=== PATIENT | female | born 1990 | race Caucasian/White ===

== ENCOUNTER 2019-07-28 09:37 | Emergency (ER) | payer OTHER ==
[2019-07-28] MEDS ORDERED: SODIUM CHLORIDE 0.9% 500 ML 500 ML IV ONE (10:18)
[2019-07-28] MEDS ORDERED: ACETAMINOPHEN TAB 325 MG TAB PO STA (10:18)
[2019-07-28] MEDS ORDERED: METOCLOPRAMIDE 5 MG/ML 2 ML VIAL IVP STA (10:19)
[2019-07-28] MEDS ORDERED: diphenhydrAMINE 50 MG/ML 1 ML VIAL IVP STA (10:19)
[2019-07-28 10:40] LABS: Basophils # (A) 0.1 k/uL (0-0.2); Basophils % (A) 1 %; Eosinophils # (A) 0.2 k/uL (0-0.7); Eosinophils % (A) 2 %; HCT 38.7 % (34.0-46.0); HGB 12.7 gm/dL (11.4-16.0); Lymphocytes # (A) 1.5 k/uL (1.0-4.8); Lymphocytes % (A) 13 %; MCH 31.4 pg (25.0-35.0); MCHC 32.7 g/dL (31.0-37.0); Mean Platelet Volume 7.6; Monocytes # (A) 0.5 k/uL (0-1.0); Monocytes % (A) 4 %; Neutrophils # (A) 9.1 k/uL (1.3-7.7); Neutrophils % (A) 79 %; Platelet Count 196 k/uL (150-450); RBC 4.04 m/uL (3.80-5.40); RDW 12.6 % (11.5-15.5); WBC 11.4 k/uL (3.8-10.6)
--- NOTE | 2019-07-28 10:43 | ED ---
Chest Pain HPI - General Chief Complaint: Chest Pain Stated Complaint: CHEST PAIN, SOB Time Seen by Provider: 07/28/19 09:40 Source: patient Mode of arrival: ambulatory - History of Present Illness Initial Comments: The patient is a 29-year-old female who presents to the emergency room with reported chest pain. She states that it woke her up from sleep around 8 AM this morning. Is located over the left side of her chest without radiation. States that it hurts when she takes a deep breath. Is not reproducible upon palpation. No history of cardiac disease. Denies a history of DVT or PE. No family history of blood clotting disorder. The patient is not on any exogenous hormone. No recent surgeries or prolonged immobility. The patient is currently . States that her last menses cycle was June 19. She has yet to establish care. She is . Denies any issues with this . Denies any abnormal vaginal bleeding or discharge. No abdominal cramping. No issues with her previous pregnancies. Denies any calf pain or swelling. Denies any changes in her urination to include dysuria, hematuria or difficulty voiding. Denies any changes in her bowel movement since diarrhea, constipation, melanotic stools or hematochezia. No fevers or chills. Denies a cough or hemoptysis. There are no other alleviating, precipitating or modifying factors - Related Data Home Medications Medication Instructions Recorded Confirmed Aspirin EC [Ecotrin Low Dose] 81 mg PO DAILY PRN 07/28/19 07/28/19 Allergies Allergy/AdvReac Type Severity Reaction Status Date / Time No Known Allergies Allergy Verified 07/28/19 11:53 Review of Systems ROS Statement: Those systems with pertinent positive or pertinent negative responses have been documented in the HPI. ROS Other: All systems not noted in ROS Statement are negative. EKG Findings - EKG Comments: EKG Findings:: EKG demonstrates a normal sinus rhythm with a ventricular rate of 81. AR interval 170. QRS 102. QTC 441. There is a right bundle branch block. No acute ST segment elevations or depressions concerning for ischemic changes Past Medical History Past Medical History: No Reported History History of Any Multi-Drug Resistant Organisms: None Reported Past Surgical History: Adenoidectomy, Ear Surgery Past Psychological History: No Psychological Hx Reported Smoking Status: Current some day smoker Past Alcohol Use History: Occasional Past Drug Use History: None Reported Course Vital Signs 07/28/19 07/28/19 07/28/19 09:39 11:42 12:00 Temperature 97.8 F 98.5 F 98.9 F Pulse Rate 109 H 77 74 Respiratory 18 20 18 Rate Blood Pressure 108/59 107/65 99/57 O2 Sat by Pulse 100 97 96 Oximetry 07/28/19 13:59 Temperature 98.5 F Pulse Rate 70 Respiratory 18 Rate Blood Pressure 104/62 O2 Sat by Pulse 98 Oximetry Chest Pain MDM - MDM Upon arrival the patient was placed into room 6. A thorough history and physical exam is performed. EKG was performed on the patient which demonstrates a right bundle branch block. Laboratory studies were conducted. White blood cell count 11.4. D-dimer is negative at 0.31. Lipase is 301. Beta Quant 8311. Urinalysis is negative chest x-ray of uncertain acute cardiac process. Ultrasound demonstrates intrauterine gestational sac and yolk sac however no pole. I discussed these results with the patient. She was given Tylenol for pain control. Does report that she had improvement in her symptoms. I dis cussed diagnosis, differential and treatment options. At this time the patient will follow up with her MUSHROOM CULTIVATOR have a repeat ultrasound done in 5-7 days. She should also follow-up and had a full cardiac workup to include Holter monitoring and echo. The patient understood this. If she has any new or worsening symptoms she should return to the emergency room. The patient was discharged home in stable condition Disposition Clinical Impression: Chest pain, First trimester Disposition: HOME SELF-CARE Condition: Stable Instructions (If sedation given, give patient instructions): Chest Pain (ED) Additional Instructions: You must follow-up with your MUSHROOM CULTIVATOR within 5-7 days to have a repeat ultrasound performed. You should also have an echo of your heart. If you have any new or worsening symptoms, you should return to the emergency department Is patient prescribed a controlled substance at d/c from ED?: No Referrals: Gerardo Moreno MD [STAFF PHYSICIAN] - 1-2 days [facility] [Provider Group] - 1-2 days Time of Disposition: 13:35
[2019-07-28 10:49] LABS: ALT 22 U/L (9-52); AST 21 U/L (14-36); African American GFR (CKD) >90 (>60 ml/min/1.73 sqM); Albumin 3.9 g/dL (3.5-5.0); Alkaline Phosphatase 38 U/L (38-126); Anion Gap 7 mmol/L; Blood Urea Nitrogen 12 mg/dL (7-17); Calcium 9.2 mg/dL (8.4-10.2); Carbon Dioxide 23 mmol/L (22-30); Chloride 109 mmol/L (98-107); Glucose 92 mg/dL (74-99); Magnesium 1.6 mg/dL (1.6-2.3); Potassium 3.8 mmol/L (3.5-5.1); Sodium 139 mmol/L (137-145); Total Bilirubin 0.7 mg/dL (0.2-1.3); Total Protein 6.5 g/dL (6.3-8.2)
[2019-07-28 10:52] LABS: D-Dimer 0.31 mg/L FEU (<0.60); INR 1.1 (<1.2); Partial Thromboplastin Time 24.1 sec (22.0-30.0); Prothrombin Time 11.4 sec (9.0-12.0)
--- NOTE | 2019-07-28 11:35 | US ---
EXAMINATION TYPE: Transabdominal DATE OF EXAM: 07/28/2019 11:26 AM COMPARISON: NONE CLINICAL HISTORY: pain. Chest pain, SOB, patient states no pelvic pain or bleeding, 4, para 3 EXAM PERFORMED: Transabdominal (TA) EXAM MEASUREMENTS: GESTATIONAL AGE / DATING Physician Established: Not established yet Dates by LMP: (5 weeks/4 days) EDC: 03/25/2020 Dates by First Scan: This is 1st scan Dates by Current Scan for: Gestational sac and yolk sac seen, measures out of range, too early MATERNAL ANATOMY Uterus: 10.4 x 6.0 x 7.2cm, anteverted Right Ovary: 2.6 x 1.6 x 1.3cm Left Ovary: 4.6 x 3.1 x 3.4cm Post CDS / Adnexa: wnl Presence of free fluid: no Presence of corpus luteal cyst: left ovary cystic area: 2.8 x 2.7 x 2.9cm, possible corpus luteum the re is an intrauterine gestational sac and yolk sac seen however no pole is identified at this t tristin. Findings Presence of subchorionic bleed: no GESTATION / SURVEY No pole seen at this time MSD: 0.9cm measures out of range, too early Yolk Sac (normal less than 6mm): 2.8mm Date of LMP: 06/19/2019 Beta HcG (if available): Not available before exam. IMPRESSION: Intrauterine gestational sac and yolk sac are seen however no pole is yet identifie d. Therefore, differential remains for anembryonic , normal intrauterine with kaelyn y dates, or evolving spontaneous . Short-term follow-up ultrasound is recommended in 5-7 days to ensure pole and cardiac activity. Serial serum beta hCGs are also recommended.
--- NOTE | 2019-07-28 11:55 | XR ---
EXAMINATION TYPE: XR chest 2V DATE OF EXAM: 07/28/2019 COMPARISON: NONE HISTORY: Chest pain TECHNIQUE: Frontal and lateral views of the chest are obtained. FINDINGS: There is no focal air space opacity, pleural effusion, or pneumothorax seen. Slight hazine ss in the right middle lobe is attributable to a pectus excavatum deformity on the lateral view. The cardiac silhouette size is within normal limits. The osseous structures are intact. IMPRESSION: No acute cardiopulmonary process.
[2019-07-28 12:35] LABS: Appearance,Urine Clear (Clear); Bilirubin,Urine Negative (Negative); Blood,Urine Negative (Negative); Color,Urine Yellow; Glucose,Urine (UA) Negative (Negative); Ketones,Urine Negative (Negative); Leukocyte Esterase,Urine Negative (Negative); Nitrite,Urine Negative (Negative); PH, Urine 5.5 (5.0-8.0); Protein,Urine Trace (Negative); Specific Gravity,Urine 1.031 (1.001-1.035)
[2019-07-28 12:59] VITALS: RESP 18
[2019-07-28 14:00] VITALS: BP 104/62; PULSE 70; TEMP 98.5
== END 2019-07-28 14:02 | disposition home or self-care (01) ==
LOC: EC 09:37
DX: O99.89 Other specified diseases and conditions complicating pregnancy, childbirth and the puerperium (principal); R07.9 Chest pain, unspecified; O99.411 Diseases of the circulatory system complicating pregnancy, first trimester; I45.10 Unspecified right bundle-branch block; F17.200 Nicotine dependence, unspecified, uncomplicated
CPT/HCPCS: 36415; 93005; 85379; 80053; 83690; 83735; 84484; 85025; 85610; 85730; 81003; 84702; 71046; 76801; 99285; 96374; 96375; J1200; J2765

== ENCOUNTER 2023-09-18 16:10 | Inpatient (IN) | payer OTHER ==
[2023-09-18] MEDS ORDERED: SODIUM CHLORIDE 0.9% 1,000 ML IV STA ×2 (16:30→18:35)
[2023-09-18] MEDS ORDERED: ONDANSETRON 4 MG/2 ML VIAL IVP STA (16:30)
[2023-09-18] MEDS ORDERED: MORPHINE SULFATE 4 MG/ML SYRINGE IV STA (16:31)
[2023-09-18] MEDS ORDERED: KETOROLAC 15 MG/ML 1 ML VIAL IVP STA (16:31)
[2023-09-18 17:00] LABS: Basophils % (A) 0 %; Eosinophils # (A) 0.1 k/uL (0-0.7); Eosinophils % (A) 1 %; HCT 34.6 % (34.0-46.0); HGB 11.7 gm/dL (11.4-16.0); Lymphocytes # (A) 0.9 k/uL (1.0-4.8); Lymphocytes % (A) 5 %; MCH 32.8 pg (25.0-35.0); MCV 96.6 fL (80.0-100.0); Mean Platelet Volume 8.4; Monocytes # (A) 0.6 k/uL (0-1.0); Monocytes % (A) 4 %; Neutrophils # (A) 14.5 k/uL (1.3-7.7); Neutrophils % (A) 90 %; Platelet Count 270 k/uL (150-450); RBC 3.58 m/uL (3.80-5.40); RDW 11.8 % (11.5-15.5); WBC 16.1 k/uL (3.8-10.6)
[2023-09-18 17:07] LABS: ALT 16 U/L (4-34); AST 19 U/L (14-36); African American GFR (CKD) >90 (>60 ml/min/1.73 sqM); Albumin 4.4 g/dL (3.5-5.0); Alkaline Phosphatase 60 U/L (38-126); Anion Gap 12 mmol/L; Blood Urea Nitrogen 15 mg/dL (7-17); Calcium 9.3 mg/dL (8.4-10.2); Carbon Dioxide 21 mmol/L (22-30); Chloride 102 mmol/L (98-107); Glucose 90 mg/dL (74-99); Lipase 53 U/L (23-300); Non-African American GFR(CKD) >90 (>60 ml/min/1.73 sqM); Potassium 4.2 mmol/L (3.5-5.1); Sodium 135 mmol/L (137-145); Total Bilirubin 0.9 mg/dL (0.2-1.3)
--- NOTE | 2023-09-18 17:11 | ED ---
Abdominal Pain HPI - General Chief Complaint: Abdominal Pain Stated Complaint: abd pain vaginal bleeding Time Seen by Provider: 09/18/23 16:23 Source: patient, RN notes reviewed Mode of arrival: ambulatory Limitations: no limitations - History of Present Illness Initial Comments: A pleasant 33-year-old female presents to emergency department complaining of pelvic pain. She states it is a constant cramping that does not let up. This may going on since Sunday. Patient states she had vaginal bleeding which is actually slowing down a bit now. Less than normal menses. Had a elective in [place] on September 01. Patient states that she took medication. Patient is A2. Had a spontaneous miscarriage as well as this elective . Patient states she had pain and some bleeding for about 2 days after the procedure which resolved until it started again on Sunday. Denying any nausea or vomiting. Pain is in the lower pelvic region, some pain in the back and right hip area as well. With urination or bowel movements. Does not recall passing any tissue but did pass a large clot yesterday. The health issues. One [place] at home. Since POUNCING LATHE OPERATOR [facility] No headache, no fever or chills, no changes in vision or hearing, no sore throat or difficulty with speech, no neck pain, no chest pain or shortness of breath, no nausea or vomiting, no changes in urination or bowel movements, no numbness or tingling, no extremity pain, no skin rashes or lesions. Doesn't or vaginal bleeding That the patient had a bilateral salpingectomy in July Past medical, surgical, social, and family history reviewed. - Related Data Home Medications Medication Instructions Recorded Confirmed Ibuprofen [Motrin] 600 mg PO Q6HR PRN 09/18/23 09/18/23 Allergies Allergy/AdvReac Type Severity Reaction Status Date / Time No Known Allergies Allergy Verified 09/18/23 17:55 Review of Systems ROS Statement: Those systems with pertinent positive or pertinent negative responses have been documented in the HPI. ROS Other: All systems not noted in ROS Statement are negative. Past Medical History Past Medical History: No Reported History History of Any Multi-Drug Resistant Organisms: None Reported Past Surgical History: Adenoidectomy, Ear Surgery Past Psychological History: No Psychological Hx Reported Past Alcohol Use History: Occasional Past Drug Use History: None Reported General Exam - General Exam Comments Initial Comments: Patient does not appear to be ill or toxic. Vital signs stable, patient afebrile. Refill less than 2 seconds. Alert and oriented 4. Cranial nerves II through XII grossly intact Limitations: no limitations General appearance: alert, in distress Head exam: Present: atraumatic, normocephalic, normal inspection Eye exam: Present: normal appearance, PERRL, EOMI. Absent: scleral icterus, conjunctival injection, periorbital swelling ENT exam: Present: normal exam, mucous membranes moist Neck exam: Present: normal inspection. Absent: tenderness, meningismus, lymphadenopathy Respiratory exam: Present: normal lung sounds bilaterally. Absent: respiratory distress, wheezes, rales, rhonchi, stridor Cardiovascular Exam: Present: regular rate, normal rhythm, normal heart sounds. Absent: systolic murmur, diastolic murmur, rubs, gallop, clicks GI/Abdominal exam: Present: soft, normal bowel sounds. Absent: distended, tenderness, guarding, rebound, rigid Extremities exam: Present: normal inspection, full ROM, normal capillary refill. Absent: tenderness, pedal edema, joint swelling, calf tenderness Back exam: Present: normal inspection Neurological exam: Present: alert, oriented X3, CN II-XII intact Psychiatric exam: Present: normal affect, normal mood Skin exam: Present: warm, dry, intact, normal color. Absent: rash Course Vital Signs 09/18/23 09/18/23 09/18/23 16:11 17:45 19:40 Temperature 99.1 F 103.1 F H 101.3 F H Pulse Rate 108 H 101 H Respiratory 18 18 Rate Blood Pressure 104/71 98/66 O2 Sat by Pulse 98 99 Oximetry 09/18/23 09/18/23 20:45 23:16 Temperature 100.3 F H 98.8 F Pulse Rate 98 73 Respiratory 16 16 Rate Blood Pressure 98/56 93/60 O2 Sat by Pulse 97 100 Oximetry - Reevaluation(s) Reevaluation #1: 09/18/23 18:42 Patient reevaluated, patient starting to look a bit ill. Spiked a fever of 103. Sepsis panel added on. Normal saline at 130 mL per hour. Patient is maintaining her pressure. Anastasiia tazobactam added on. Note that the patient is refusing pelvic examination. We'll have the patient self swab for gonorrhea, chlamydia, genital culture. I discussed this case with the on-call teacher private. Reevaluation #2: 09/18/23 18:43 Patient meeting the sepsis protocol, tachycardic, normal heart sounds otherwise. Normal S1 and S2, capillary refill less than 2 seconds. Normal peripheral pulses. Normal blood pressure. No adventitious lung sounds. Reevaluation #3: 09/18/23 20:58 - Consultations Consultation #1: Was discussed in detail with both the hospitalist physician as well as the POUNCING LATHE OPERATOR on-call, Dr. Gonzalez since admission to the patient. Medical Decision Making - Medical Decision Making Was pt. sent in by a medical professional or institution? @ -no Did you speak to anyone other than the patient for history? @ -Patient's friend/aunt is in the room with her Did you review nursing and triage notes? @ -agree Were old charts reviewed? @ -no Differential Diagnosis? @ -Differential diagnosis includes but is not limited to: Came products of conception, ovarian cyst, ovarian torsion, endometritis, less likely appendicitis or diverticulitis or other intra-abdominal pathology. Does not appear to be consistent with PID. Patient has bleeding with no vaginal discharge. Systemic infectious process. No consistent of cardiopulmonary disease. EKG interpreted by me (3pts min.)? @ -[none] X-rays interpreted by me (1pt min.)? @ -[none] CT interpreted by me (1pt min.)? @ -[none] U/S interpreted by me (1pt. min.)? @ -[none] What testing was considered but not performed? (CT, X-rays, U/S, labs)? Why? @ [CT, X-rays, U/S, labs? Why?] What meds were considered but not given? Why? @ -[none] Did you discuss the management of the patient with other professionals? @ -[professionals i.e. Dr, PA, BLACK LEATHER TRIMMER, Lab, RT, Psych Nurse, Clinical Data Abstractor, Assistant Director Of Residence Life, Teacher, Incident Response Coordinator, case hardener? Give summary] Did you reconcile home meds? @ -[none] Was smoking cessation discussed for >3mins.? @ -[none] Was critical care preformed (if so, how long)? @ -[none] Were there social determinants of health that impacted care today? How? (Homelessness, low income, unemployed, alcoholism, drug addiction, transportati on, low edu. Level, literacy, decrease access to med. care, correction, rehab)? @ -[Homelessness, low income, unemployed, alcoholism, drug addiction, transportation, low edu. Level, literacy, decrease access to med. care, correction, rehab?] Was there de-escalation of care discussed even if they declined? (Discuss DNR or withdrawal of care, Hospice)? @ -[Discuss DNR or withdrawal of care, Hospice?] What co-morbidities impacted this encounter? (DM, HTN, Smoking, COPD, CAD, Cancer, CVA, Hep., AIDS, mental health diagnosis, sleep apnea, morbid obesity)? @ -[DM, HTN, Smoking, COPD, CAD, Cancer, CVA, Hep., AIDS, mental health diagnosis, sleep apnea, morbid obesity?] Was patient admitted / discharged? @ -[hospital course] Undiagnosed new problem with uncertain prognosis? @ -[none] Drug Therapy requiring intensive monitoring for toxicity (Heparin, Nitro, Insulin, Cardizem)? @ -[none] Were any procedures done? @ -[none] Diagnosis/symptom? @ -[default] Acute, or Chronic, or Acute on Chronic? @ -[default] Uncomplicated (without systemic symptoms) or Complicated (systemic symptoms)? @ -[default] Side effects of treatment? @ -[none] Exacerbation, Progression, or Severe Exacerbation] @ -[no] Poses a threat to life or bodily function? @ -[no] - Lab Data Result diagrams: 09/18/23 16:40 09/18/23 16:40 Lab Results 09/18/23 09/18/23 09/18/23 Range/Units 16:40 16:40 16:40 WBC 16.1 H (3.8-10.6) k/uL RBC 3.58 L (3.80-5.40) m/uL Hgb 11.7 (11.4-16.0) gm/dL Hct 34.6 (34.0-46.0) % MCV 96.6 (80.0-100.0) fL MCH 32.8 (25.0-35.0) pg MCHC 34.0 (31.0-37.0) g/dL RDW 11.8 (11.5-15.5) % Plt Count 270 (150-450) k/uL MPV 8.4 Neutrophils % 90 % Lymphocytes % 5 % Monocytes % 4 % Eosinophils % 1 % Basophils % 0 % Neutrophils # 14.5 H (1.3-7.7) k/uL Lymphocytes # 0.9 L (1.0-4.8) k/uL Monocytes # 0.6 (0-1.0) k/uL Eosinophils # 0.1 (0-0.7) k/uL Basophils # 0.0 (0-0.2) k/uL Sodium 135 L (137-145) mmol/L Potassium 4.2 (3.5-5.1) mmol/L Chloride 102 (98-107) mmol/L Carbon Dioxide 21 L (22-30) mmol/L Anion Gap 12 mmol/L BUN 15 (7-17) mg/dL Creatinine 0.76 (0.52-1.04) mg/dL Est GFR (CKD-EPI)AfAm >90 (>60 ml/min/1.73 sqM) Est GFR (CKD-EPI)NonAf >90 (>60 ml/min/1.73 sqM) Glucose 90 (74-99) mg/dL Plasma Lactic Acid Efraín (0.7-2.0) mmol/L Calcium 9.3 (8.4-10.2) mg/dL Total Bilirubin 0.9 (0.2-1.3) mg/dL AST 19 (14-36) U/L ALT 16 (4-34) U/L Alkaline Phosphatase 60 (38-126) U/L C-Reactive Protein (<1.0) mg/dL Total Protein 7.0 (6.3-8.2) g/dL Albumin 4.4 (3.5-5.0) g/dL Lipase 53 (23-300) U/L Urine Color Yellow Urine Appearance Cloudy H (Clear) Urine pH 5.5 (5.0-8.0) Ur Specific [place] 1.021 (1.001-1.035) Urine Protein Trace H (Negative) Urine Glucose (UA) Negative (Negative) Urine Ketones 2+ (Negative) Urine Blood Large (Negative) Urine Nitrite Negative (Negative) Urine Bilirubin Negative (Negative) Urine Urobilinogen <2.0 (<2.0) mg/dL Ur Leukocyte Esterase Moderate (Negative) Urine RBC 13 H (0-5) /hpf Urine WBC 30 H (0-5) /hpf Ur Squamous Epith Cells 3 (0-4) /hpf Urine Bacteria Rare H (None) /hpf Urine Mucus Many H (None) /hpf Blood Type Blood Type Recheck Bld Type Recheck Status Antibody Screen Spec Expiration Date 09/18/23 09/18/23 09/18/23 Range/Units 17:04 18:35 18:35 WBC (3.8-10.6) k/uL RBC (3.80-5.40) m/uL Hgb (11.4-16.0) gm/dL Hct (34.0-46.0) % MCV (80.0-100.0) fL MCH (25.0-35.0) pg MCHC (31.0-37.0) g/dL RDW (11.5-15.5) % Plt Count (150-450) k/uL MPV Neutrophils % % Lymphocytes % % Monocytes % % Eosinophils % % Basophils % % Neutrophils # (1.3-7.7) k/uL Lymphocytes # (1.0-4.8) k/uL Monocytes # (0-1.0) k/uL Eosinophils # (0-0.7) k/uL Basophils # (0-0.2) k/uL Sodium (137-145) mmol/L Potassium (3.5-5.1) mmol/L Chloride (98-107) mmol/L Carbon Dioxide (22-30) mmol/L Anion Gap mmol/L BUN (7-17) mg/dL Creatinine (0.52-1.04) mg/dL Est GFR (CKD-EPI)AfAm (>60 ml/min/1.73 sqM) Est GFR (CKD-EPI)NonAf (>60 ml/min/1.73 sqM) Glucose (74-99) mg/dL Plasma Lactic Acid Efraín 0.7 (0.7-2.0) mmol/L Calcium (8.4-10.2) mg/dL Total Bilirubin (0.2-1.3) mg/dL AST (14-36) U/L ALT (4-34) U/L Alkaline Phosphatase (38-126) U/L C-Reactive Protein 5.9 H (<1.0) mg/dL Total Protein (6.3-8.2) g/dL Albumin (3.5-5.0) g/dL Lipase (23-300) U/L Urine Color Urine Appearance (Clear) Urine pH (5.0-8.0) Ur Specific [place] (1.001-1.035) Urine Protein (Negative) Urine Glucose (UA) (Negative) Urine Ketones (Negative) Urine Blood (Negative) Urine Nitrite (Negative) Urine Bilirubin (Negative) Urine Urobilinogen (<2.0) mg/dL Ur Leukocyte Esterase (Negative) Urine RBC (0-5) /hpf Urine WBC (0-5) /hpf Ur Squamous Epith Cells (0-4) /hpf Urine Bacteria (None) /hpf Urine Mucus (None) /hpf Blood Type A Positive Blood Type Recheck A Pos Bld Type Recheck Status No Antibody Screen NEGATIVE Spec Expiration Date 09/21/20232303 Critical Care Time Critical Care Time: Yes (Sepsis, multiple rechecks, interventions) Total Critical Care Time: 35 Disposition Clinical Impression: Sepsis, Endometritis, Products of conception, retention Disposition[facility] Condition: Fair Is patient prescribed a controlled substance at d/c from ED?: Yes Time of Disposition: 21:00 Decision to Admit Reason: Admit from EC Decision Time: 21:00
[2023-09-18 17:27] LABS: Bacteria,Urine Rare /hpf; Mucus,Urine Many /hpf; RBC,Urine 13 /hpf (0-5); Squamous Epithelial Cell,Urine 3 /hpf (0-4); WBC,Urine 30 /hpf (0-5)
[2023-09-18 18:03] LABS: Appearance,Urine Cloudy (Clear); Bilirubin,Urine Negative (Negative); Blood,Urine Large (Negative); Color,Urine Yellow; Glucose,Urine (UA) Negative (Negative); Ketones,Urine 2+ (Negative); Leukocyte Esterase,Urine Moderate (Negative); Nitrite,Urine Negative (Negative); PH, Urine 5.5 (5.0-8.0); Protein,Urine Trace (Negative); Specific Gravity,Urine 1.021 (1.001-1.035); Urobilinogen,Urine <2.0 mg/dL (<2.0)
--- NOTE | 2023-09-18 18:08 | US ---
EXAMINATION TYPE: US pelvic complete DATE OF EXAM: 09/18/2023 COMPARISON: 07/28/2019. CLINICAL INDICATION: Female, 33 years old with history of Pelvic pain?assessed for products of concep tion, a; generalized pelvic pain and bleeding. Pt had medical on 09/01/23. Pt states bilater al tubalectomy 07/31/23. . Pt states she had an US 09/01/23 and she was 8 weeks pg. Checking for RPOC TECHNIQUE: . Transabdominal sonographic images of the pelvis were acquired. Date of LMP: 07/08/23 EXAM MEASUREMENTS: Uterus: 9.5 x 6.1 x 5.4cm cm Endometrial Stripe: 1.6 cm Right Ovary: 2.4 x 1.3 x 1.5 cm Left Ovary: 2.7 x 2.1 x 2.4 cm 1. Uterus: Anteverted wnl 2. Endometrium: Thickened and heterogeneous. There does appear to be some hypervascularity 3. Right Ovary: Anechoic area with thick hyperechoic ring measuring 1.3 x 1.3 x 1.2cm felt to repres ent a follicle within the ovary. Hyperechoic area seen measuring 1.2 x 1.1 x 0.8cm 4. Left Ovary: Cystic area seen measuring 1.4 x 1.4 x 1.1cm Spectral, color and waveform doppler imaging shows good arterial and venous flow within the ovaries ; there is no evidence for ovarian torsion. 5. Bilateral Adnexa: Free fluid seen in right adnexa 6. Posterior cul-de-sac: wnl IMPRESSION: There is thickened endometrium with color Doppler flow. Findings could represent retained products of conception. No gestational sac visualized. Correlate with serum beta hCG.
[2023-09-18] MEDS ORDERED: PIPERACILLIN-TAZOBACTAM 3.375 GM in SODIUM CHLORIDE 0.9% 100 ML IVPB STA (18:35)
[2023-09-18] MEDS ORDERED: ACETAMINOPHEN TAB 500 MG TAB PO STA (18:37)
--- NOTE | 2023-09-18 20:34 | CT ---
EXAMINATION TYPE: CT abdomen pelvis w con CT DLP: 473.7 mGycm, Automated exposure control for dose reduction was used. DATE OF EXAM: 09/18/2023 8:01 PM COMPARISON: Ultrasound same day. CLINICAL INDICATION:Female, 33 years old with history of Lower abdominal/pelvic pain; Lower pelvic pa in x 4 days TECHNIQUE: Axial CT of the ;CT abdomen pelvis w con;Sagittal and coronal reformats were created on a separate workstation. Contrast used:100 cc mL of Isovue 300 with IV Contrast, (none if empty) Oral contrast used: without Oral Contrast (none if empty) FINDINGS: LOWER CHEST: Unremarkable ABDOMEN LIVER: Mild periportal edema likely secondary to hydration/volume status. GALLBLADDER AND BILE DUCTS: Unremarkable. PANCREAS: Unremarkable. SPLEEN: Unremarkable. ADRENAL GLANDS: Unremarkable. KIDNEYS AND URETERS: No evidence of hydronephrosis or renal calculus. The ureters are unremarkable. PELVIS BLADDER: Unremarkable REPRODUCTIVE: Thickened endometrium with fluid with focal area of hyperemic endometrium/retained prox imal subclavian exception in the fundus posteriorly measuring 25 x 9 x 34 mm. Multiple dilated vessel s are seen in the pelvis. ABDOMEN & PELVIS STOMACH AND BOWEL: No evidence of bowel obstruction. PERITONEUM/RETROPERITONEUM: No evidence of pneumoperitoneum or free fluid. VASCULATURE: No evidence of aortic aneurysm. MUSCULOSKELETAL: No acute osseous abnormalities LYMPH NODES: No gross evidence for lymphadenopathy. SOFT TISSUE/ABDOMINAL WALL: Unremarkable IMPRESSION: Thickened endometrium with hyperemic area posteriorly in the fundus suggestive of retained products o f conception. These findings correlate with ultrasound same day. ELECTRONIC GAMING DEVICE SUPERVISOR consultation recommended.
[2023-09-18] MEDS ORDERED: MORPHINE SULFATE 4 MG/ML SYRINGE IV PRN (21:23)
[2023-09-18] MEDS ORDERED: NALOXONE 0.4 MG/ML 1 ML VIAL IV PRN (21:23)
[2023-09-18] MEDS ORDERED: ONDANSETRON 4 MG/2 ML VIAL IVP PRN (21:23)
[2023-09-18] MEDS: PIPERACILLIN-TAZOBACTAM 3.375 GM in SODIUM CHLORIDE 0.9% 100 ML IVPB SCH (22:44)
[2023-09-18] MEDS: SODIUM CHLORIDE 0.9% 1,000 ML IV SCH (22:45)
[2023-09-19] MEDS ORDERED: ACETAMINOPHEN TAB 500 MG TAB PO PRN (00:11)
[2023-09-19] MEDS ORDERED: IBUPROFEN IV 800 MG in SODIUM CHLORIDE 0.9% 250 ML IV ONE (02:30)
[2023-09-19] MEDS: PIPERACILLIN-TAZOBACTAM 3.375 GM in SODIUM CHLORIDE 0.9% 100 ML IVPB SCH ×4 (05:47→22:04)
[2023-09-19] MEDS: SODIUM CHLORIDE 0.9% 1,000 ML IV SCH ×3 (05:47→23:13)
[2023-09-19 06:34] LABS: Basophils # (A) 0.1 k/uL (0-0.2); Basophils % (A) 0 %; Eosinophils # (A) 0.2 k/uL (0-0.7); Eosinophils % (A) 2 %; HCT 28.9 % (34.0-46.0); Lymphocytes # (A) 1.9 k/uL (1.0-4.8); Lymphocytes % (A) 14 %; MCHC 32.4 g/dL (31.0-37.0); MCV 98.6 fL (80.0-100.0); Mean Platelet Volume 8.6; Monocytes # (A) 0.7 k/uL (0-1.0); Monocytes % (A) 6 %; Neutrophils # (A) 10.1 k/uL (1.3-7.7); Neutrophils % (A) 78 %; Platelet Count 200 k/uL (150-450); RBC 2.93 m/uL (3.80-5.40); RDW 11.8 % (11.5-15.5); WBC 13.1 k/uL (3.8-10.6)
[2023-09-19 07:05] LABS: HGB 9.4 gm/dL (11.4-16.0)
[2023-09-19] MEDS ORDERED: ACETAMINOPHEN IV (For NPO) 1,000 MG in EMPTY BAG 1 BAG IVPB STA (08:10)
--- NOTE | 2023-09-19 08:52 | P.HPOB ---
History of Present Illness H&P Date: 09/19/23 Chief Complaint: Endometritis, failed medical termination of This is a 33-year-old female that presented to the emergency department last evening with complaints of increasing pelvic pain. Patient states she had a medical termination of on September 01 with [facility]. Patient states she placed 400 g of Cytotec vaginally. Patient states she did have some bleeding with some passage of clots after placement. No follow-up was done no hormone levels were followed. Patient states over the weekend she began having increasing pelvic low back pain. Patient denies fever over the weekend. Patient states bleeding began to be heavy on Sunday and Sunday with passage of clots. Bleeding slowed to a moderate flow on Sunday and pain increased to stay therefore she presented to the emergency department. Patient states she doesn't have a thermometer at home but felt warm. Patient initially in the ER noted temperature to be normal, after about an hour increased to 103. Patient denies bowel or bladder concerns. Review of Systems Constitutional: Reports fatigue, Reports fever, Denies chills Ears, nose, mouth and throat: Denies headache Cardiovascular: Denies leg edema Respiratory: Denies dyspnea Gastrointestinal: Reports nausea, Denies vomiting Genitourinary: Reports Past Medical History Past Medical History: No Reported History Additional Past Medical History / Comment(s): 4 vaginal deliveries. History of Any Multi-Drug Resistant Organisms: None Reported Past Surgical History: Adenoidectomy, Ear Surgery Additional Past Surgical History / Comment(s): wisdom teeth. Past Anesthesia/Blood Transfusion Reactions: No Reported Reaction Past Psychological History: No Psychological Hx Reported Smoking Status: Current every day smoker, Light tobacco smoker Past Alcohol Use History: Occasional Past Drug Use History: None Reported - Past Family History Mother Family Medical History: Asthma, Hypertension Additional Family Medical History / Comment(s): breast cancer 7 years ago Father Additional Family Medical History / Comment(s): ulcerative colitis Medications and Allergies Home Medications Medication Instructions Recorded Confirmed Type Ibuprofen [Motrin] 600 mg PO Q6HR PRN 09/18/23 09/18/23 History Allergies Allergy/AdvReac Type Severity Reaction Status Date / Time No Known Allergies Allergy Verified 09/18/23 17:55 Exam Osteopathic Statement: *. No significant issues noted on an osteopathic structural exam other than those noted in the History and Physical/Consult. Vital Signs Temp Pulse Pulse Resp BP BP Pulse Ox 09/19/23 07:15 98.2 F 70 16 95/57 99 09/19/23 02:00 98.3 F 76 16 90/47 97 09/19/23 00:26 98.7 F 79 16 93/56 100 09/18/23 23:16 98.8 F 73 16 93/60 100 09/18/23 20:45 100.3 F H 98 16 98/56 97 09/18/23 19:40 101.3 F H 09/18/23 17:45 103.1 F H 101 H 18 98/66 99 09/18/23 16:11 99.1 F 108 H 18 104/71 98 Intake and Output 09/18/23 09/19/23 09/19/23 22:59 06:59 14:59 Other: Voiding Method Toilet # Voids 2 Weight 49.895 kg 49.895 kg Targeted physical exam is performed in this date and rubber down a well-nourished well-developed female in no acute distress, resting in bed. Breathing is nonlabored, heart has a regular rate and rhythm, patient did have an examination ER last night with tenderness noted on pelvic exam. (Therefore no pelvic exam was performed this morning.) Results Result Diagrams: 09/19/23 06:08 09/18/23 16:40 Abnormal Lab Results - Last 24 Hours (Table) 09/18/23 09/18/23 09/18/23 Range/Units 16:40 16:40 16:40 WBC 16.1 H (3.8-10.6) k/uL RBC 3.58 L (3.80-5.40) m/uL Hgb (11.4-16.0) gm/dL Hct (34.0-46.0) % Neutrophils # 14.5 H (1.3-7.7) k/uL Lymphocytes # 0.9 L (1.0-4.8) k/uL Sodium 135 L (137-145) mmol/L Carbon Dioxide 21 L (22-30) mmol/L C-Reactive Protein (<1.0) mg/dL Urine Appearance Cloudy H (Clear) Urine Protein Trace H (Negative) Urine RBC 13 H (0-5) /hpf Urine WBC 30 H (0-5) /hpf Urine Bacteria Rare H (None) /hpf Urine Mucus Many H (None) /hpf 09/18/23 09/19/23 Range/Units 18:35 06:08 WBC 13.1 H (3.8-10.6) k/uL RBC 2.93 L (3.80-5.40) m/uL Hgb 9.4 L D (11.4-16.0) gm/dL Hct 28.9 L (34.0-46.0) % Neutrophils # 10.1 H (1.3-7.7) k/uL Lymphocytes # (1.0-4.8) k/uL Sodium (137-145) mmol/L Carbon Dioxide (22-30) mmol/L C-Reactive Protein 5.9 H (<1.0) mg/dL Urine Appearance (Clear) Urine Protein (Negative) Urine RBC (0-5) /hpf Urine WBC (0-5) /hpf Urine Bacteria (None) /hpf Urine Mucus (None) /hpf Assessment and Plan (1) Endometritis Current Visit: Yes Status: Acute Code(s): N71.9 - INFLAMMATORY DISEASE OF UTERUS, UNSPECIFIED SNOMED Code(s): 07478526 (2) Products of conception, retention Current Visit: Yes Status: Acute Code(s): KFV4675 - SNOMED Code(s): 3 20479124 Plan: 33-year-old female admitted last evening for failed medical termination of with endometritis. Patient was admitted and IV Zosyn was begun in the ER last evening. [facility] for pain control through the night. Patient is counseled on need for suction dilation and curettage given failed termination of . Ultrasound was reviewed with hypervascular areas within the uterus. Quantitative beta hCG and type and Rh are ordered. Operating room is contacted for scheduling suction dilation and curettage. Procedure is reviewed. Discussed with patient that she needs to be afebrile for 24 hours prior to discharge. Patient states understanding all questions are answered.
[2023-09-19] MEDS ORDERED: IBUPROFEN IV 800 MG in SODIUM CHLORIDE 0.9% 250 ML IV PRN (11:22)
[2023-09-19] MEDS: ACETAMINOPHEN IV (For NPO) 1,000 MG in EMPTY BAG 1 BAG IVPB PRN ×2 (14:45→21:19)
[2023-09-19] MEDS ORDERED: IV FLUID CONTINUATION 1,000 ML IV ONE (15:32)
[2023-09-19] MEDS ORDERED: ONDANSETRON 4 MG/2 ML VIAL IVP ONE (15:58)
[2023-09-19] MEDS ORDERED: DEXAMETHASONE SOD PHOSPHATE 4 MG/ML 1 ML VIAL IVP ONE (15:59)
[2023-09-19 16:19] LABS: C. trachomatis,PCR Negative (Negative); N. gonorrhoeae,PCR Negative (Negative)
[2023-09-19] MEDS ORDERED: PROPOFOL 10 MG/ML 20 ML VIAL IV ONE (16:27)
[2023-09-19] MEDS ORDERED: LIDOCAINE 1% INJ 10MG/ML (20 ML MDV) ONE (16:27)
[2023-09-19] MEDS ORDERED: KETOROLAC 15 MG/ML 1 ML VIAL ONE (16:27)
[2023-09-19] MEDS ORDERED: MIDAZOLAM 2 MG/2 ML VIAL ONE (16:27)
[2023-09-19] MEDS ORDERED: fentaNYL (PF) 50 MCG/ML 2 ML AMP ONE (16:27)
--- NOTE | 2023-09-19 16:56 | P.OP ---
Date of Procedure: 09/19/23 Preoperative Diagnosis: Failed medical termination of , endometritis Postoperative Diagnosis: same Procedure(s) Performed: suction dilation and curettage Anesthesia: MAC Surgeon: Rosa Gonzalez Estimated Blood Loss (ml): 10 IV fluids (ml): 300 Urine output (ml): 50 Pathology: other (uterine contents) Condition: stable Disposition: PACU Indications for Procedure: failed medical termination of , retained products of conception Operative Findings: Moderate amount of products of conception Description of Procedure: Patient was taken back to the operating suite where general anesthesia was obtained without difficulty by the anesthesia . She was prepped and draped in the normal sterile fashion in the dorsal lithotomy position. A red rubber catheter was used to drain the bladder clear yellow urine. A weighted speculum was placed in the posterior vaginal vault the interval of the cervix is visualized and grasped with a single-toothed. Endocervical canal was then serially dilated and a 8 mm suction curette was placed through the cervix and toward the endometrial cavity. After multiple passes a moderate amount of products of conception were removed from the fundal region. The gentle curettage was performed and the uterus appeared empty of products. A gritty texture was appreciated. Suction curette was placed one more time and no furt her products of conception were appreciated in the suction tubing. The single- tooth tenaculum was taken off of the anterior lip of the cervix. Hemostasis was noted. All instruments were then removed from the patient's vaginal vault. Uterus is noted to be firm. All counts were correct 2. Patient tolerated procedure well and was taken the recovery room awake in stable condition.
[2023-09-19] MEDS ORDERED: LACTATED RINGERS 1,000 ML IV ONE (17:13)
[2023-09-19] MEDS: IBUPROFEN 600 MG TAB PO SCH (18:35)
[2023-09-20] MEDS: IBUPROFEN 600 MG TAB PO SCH (02:15)
[2023-09-20 03:10] VITALS: TEMP 98.1
[2023-09-20] MEDS: SODIUM CHLORIDE 0.9% 1,000 ML IV SCH (05:50)
[2023-09-20] MEDS: PIPERACILLIN-TAZOBACTAM 3.375 GM in SODIUM CHLORIDE 0.9% 100 ML IVPB SCH (06:25)
[2023-09-20 06:43] LABS: HCT 27.5 % (34.0-46.0); Hypochromasia Slight; MCH 32.4 pg (25.0-35.0); MCHC 32.8 g/dL (31.0-37.0); MCV 98.7 fL (80.0-100.0); Mean Platelet Volume 9.4; Platelet Count 198 k/uL (150-450); RBC 2.79 m/uL (3.80-5.40); RDW 12.1 % (11.5-15.5); WBC 11.2 k/uL (3.8-10.6)
[2023-09-20 07:47] VITALS: BP 87/43; PULSE 68; RESP 14
[2023-09-20] MEDS ORDERED: IBUPROFEN 600 MG TAB PO STA (08:37)
--- NOTE | 2023-09-20 08:41 | P.DS ---
Providers Date of admission: 09/18/23 21:47 Expected date of discharge: 09/20/23 Attending physician: Rosa Gonzalez Primary care physician: Stated None - Discharge Diagnosis(es) (1) Endometritis Current Visit: Yes Status: Acute (2) Products of conception, retention Current Visit: Yes Status: Acute (3) Acute blood loss anemia Current Visit: Yes Status: Acute (4) Status post dilation and curettage Current Visit: Yes Status: Acute Hospital Course: 33-year-old female admitted for fever or abdominal pain and failed medical termination of . Patient underwent medical termination of on September 01, patient states she did pass clots but no heavy bleeding no tissue. Patient did not follow-up nor did the office have her follow up after procedure. No labs were followed. Patient noted over the weekend increased bleeding and pain. Patient presented to the emergency department elevated temp of 10 3 was noted. Elevated white count of 16. Patient was admitted for scheduled suction dilation and curettage for retained products of conception noted on ultrasound, failed medical termination of . Patient did have noted anemia on hospital day 1 hemoglobin going from 11.7 upon presentation to the emergency department to 9.4. Patient was added on to the surgery schedule and underwent suction dilation and curettage, a moderate amount of products of conception were noted at the time of surgery. For full details on the surgery please see the operative report. Patient's postoperative course has been stable. On this postoperative day #1 patient states she is feeling much better. She has not had a fever since that initial elevated temperature in the emergency department. White count is now 11 down from 16 upon admission. Hemoglobin is stable at 9. Patient notes minimal bleeding. Patient states she is comfortable for discharge home. Patient Condition at Discharge: Good Plan - Discharge Summary New Discharge Prescriptions: No Action Ibuprofen [Motrin] 600 mg PO Q6HR PRN PRN Reason: Pain Discharge Medication List Ibuprofen [Motrin] 600 mg PO Q6HR PRN 09/18/23 [History] Follow up Appointment(s)/Referral(s): Rosa Gonzalez DO [Doctor of Osteopathic Medicine] - 1 Week Patient Instructions/Handouts: *Surgery [facility] - ([facility]) D&C Post-Op Instructions Activity/Diet/Wound Care/Special Instructions: No tub baths or intercourse until cleared by myself, patient is to call the office to make a routine appointment for next week. [id number] ibuprofen as needed for pain. Indication patient is to begin doxycycline 100 mg twice daily for 7 days. Discharge/Stand Alone Forms: Area PCPs Discharge Disposition: HOME SELF-CARE
== END 2023-09-20 10:15 | disposition home or self-care (01) | DRG 854 ==
LOC: EC 16:10 → 6NMEDSUR 21:47
PROVIDERS: ADMIT Obstetrics & Gynecology Obstetrics; ATTEND Obstetrics & Gynecology Obstetrics
PROC: 10D17ZZ Extraction of Products of Conception, Retained, Via Natural or Artificial Opening (ICD-10-PCS; principal; 2023-09-19 09:40)
DX: A41.9 Sepsis, unspecified organism (principal); D62 Acute posthemorrhagic anemia; Z82.49 Family history of ischemic heart disease and other diseases of the circulatory system; O07.4 Failed attempted termination of pregnancy without complication; I10 Essential (primary) hypertension
CPT/HCPCS: 36415; 74177; 76856; 80053; 81001; 83605; 83690; 84702; 85025; 85027; 86140; 86850; 86900; 86901; 87040; 87070; 87086; 87491; 87591; 93975; 96361; 96365; 96366; 96375; 96376; 99291